=== PATIENT | male | born 1975 | race Caucasian/White ===

== ENCOUNTER 2020-04-01 02:27 | Outpatient (CLI) | payer BC, SELFPAY ==
[2020-04-01 22:41] LABS: SARS-CoV-2 RNA PCR Negative
== END 2020-04-01 02:28 | disposition home or self-care (01) ==
LOC: ANHCOVIDDT 02:27
PROVIDERS: Visit Provider Surgery
DX: Z01.818 Encounter for other preprocedural examination (principal); Z20.828 Contact with and (suspected) exposure to other viral communicable diseases
CPT/HCPCS: 87635; C9803; U0003

== ENCOUNTER 2020-04-03 00:18 | Day surgery (SDC) | payer BC, SELFPAY ==
[2020-03-28 13:20] VITALS: BMI 41.0
--- NOTE | 2020-04-02 12:16 | WPDANESEPPF ---
Anes - Initial Pre Proc Eval Procedure: Operation Date: 04/03/20 08:00 Proposed Procedures p Screening Colonoscopy - Miguel Willett DO Date/Time: 04/02/20 12:16 Surgeon: Miguel Willett DO Pre Op Diagnosis: Hx Colon Polyps Patient Data Age: 44 Gender: M Height: 1.85 m Weight: 141 kg Allergies Allergy/AdvReac Type Severity Reaction Status Date / Time No Known Allergies Allergy Unverified 04/03/20 06:55 Home Medications Medication Instructions Recorded Confirmed Type No Home Medications 03/28/20 04/03/20 History Patient hx anesthesia problems: none Family hx anesthesia problems: none PMFSH Family History Family History Father Family history of diabetes mellitus in first degree relative Other Asthma Diabetes mellitus Hypertension Social History Social History Smoking status: Never smoker Smokeless tobacco user: chewing tobacco Alcohol intake: current Substance use: never Substance use type: does not use Gender identity (if verbalized by the patient): Male Spiritual care concerns: No Anes - Eval Final PreProcedure Day of Procedure 04/02/20 12:16 Patient weight: morbidly obese Heart: regular rate and rhythm Lungs: clear to auscultation and normal air movement Airway: Mallampati scale class II Neurological: alert and oriented Last oral intake: >/= 8 hours ASA classification: III Emergent: no Anesthetic plan: proceed Anesthesia type and monitoring: general GIVS and standard monitoring Informed Consent: The patient's anesthetic plan and its attendant risks and benefits were discussed with the patient/family/POA. Questions were solicited and answers provided to the satisfaction of the patient/family/POA.
[2020-04-03 06:56] VITALS: BP 164/98; PULSE 80; RESP 20; TEMP 36.2; O2SAT 97
[2020-04-03] MEDS: LACTATED RINGERS 1,000 ML 150 ML IV CONT (07:04)
--- NOTE | 2020-04-03 07:33 | PM.IMHP ---
H&P: HPI History of Present Illness Date/Time: 04/03/20 07:33 Chief Complaint: hx colon polyps Narrative: Tito Gonzalez Jr. is a 44 year old male who presents for colonoscopy. He last had a colonoscopy 1 year ago and a large polyp was removed and tattooed at that time. He denies any changes since last seen. He has hx of diverticulitis but hasn't had any issues lately. Review of Systems Review of Systems: All systems reviewed & are unremarkable except as noted in HPI and below Constitutional: Constitutional: Denies chills, Denies fever(s), Denies headache(s) and Denies weight loss Eyes: Eyes: Denies change in vision ENT: Denies dizziness, Denies headache(s), Denies neck mass and Denies throat swelling Cardiovascular: Cardiovascular: Denies chest pain, Denies lightheadedness and Denies dyspnea Respiratory: Respiratory: Denies cough, Denies dyspnea and Denies wheezing Gastrointestinal: Gastrointestinal: Denies abdominal pain, Denies change in bowel habits, Denies nausea and Denies vomiting Genitourinary: Genitourinary: Denies hematuria and Denies dysuria Musculoskeletal: Musculoskeletal: Reports as per HPI Integumentary/Breasts: Skin/Breast: Reports as per HPI Neurologic: Denies dizziness and Denies headache(s) Allergic/Immunologic: Allergic/Immunologic: Denies throat swelling and Denies wheezing PMF Family History Family History Father Family history of diabetes mellitus in first degree relative Other Asthma Diabetes mellitus Hypertension Social History Social History Smoking status: Never smoker Smokeless tobacco user: chewing tobacco Alcohol intake: current Substance use: never Substance use type: does not use Gender identity (if verbalized by the patient): Male Spiritual care concerns: No Meds Home Medications and Allergies Home Medications Medication Instructions Recorded Confirmed Type No Home Medications 03/28/20 04/03/20 History Allergies Allergy/AdvReac Type Severity Reaction Status Date / Time No Known Allergies Allergy Unverified 04/03/20 06:55 Vital Signs Vital Signs - 24 hr 04/03/20 06:56 Temperature 36.2 C L Pulse Rate 80 Respiratory Rate 20 Blood Pressure 164/98 H Pulse Oximetry 97 Exam Const: General: no acute distress and alert Orientation/consciousness: patient oriented x3 HENMT: Head: normocephalic and atraumatic Ears: hearing grossly normal bilaterally General nose exam: Normal nares present Mouth: Yes Normal oral and palatal mucosa present Eyes: Periorbital: periorbital findings normal Sclera: sclerae normal EOM: EOMs intact bilaterally Neck: Neck: normal visual inspection, no lymphadenopathy and trachea midline Chest: Chest palpation & inspection: normal inspection of the chest Resp: Effort & Inspection: normal respiratory effort Auscultation: clear to auscultation bilaterally Cardio: Jugular venous distension: no JVD Rate: regular rate Rhythm: regular rhythm Heart sounds: S1 normal heart sound present and S2 normal heart sound present Peripheral pulses: Peripheral pulses 2+ throughout GI: Inspection: normal to inspection GI Palp: Yes Soft to palpation, No Tenderness to palpation present (GI), No Guarding due to palpation present (GI) and No Rebound tenderness present Percussion: Yes normal to percussion Auscultation: normal bowel sounds : General: Yes no CVA tenderness Back/Spine/Pelvis: Back: no CVA tenderness Neuro: General: patient oriented x3, no focal motor deficits and CN's II-XI intact bilaterally Cognition (Neuro): normal cognition Speech: normal speech Motor exam (neuro): 5/5 motor strength present throughout Extrem: General: capillary refill normal and no clubbing, cyanosis or edema Assessment and Plan Assessment and plan (1) Hx of colonic polyp: Code(s): Z86.010 - Per
[2020-04-03 08:37] VITALS: BP 137/70; PULSE 74; RESP 18; O2SAT 98
[2020-04-03 08:47] VITALS: BP 129/64; PULSE 72; RESP 22; O2SAT 96
[2020-04-03 08:57] VITALS: BP 123/78; PULSE 67; RESP 24; O2SAT 97
[2020-04-03 09:07] VITALS: BP 132/81; PULSE 66; RESP 22; O2SAT 100
== END 2020-04-03 09:45 | disposition home or self-care (01) ==
PROVIDERS: Visit Provider Surgery
PROC: 0DJD8ZZ Inspection of Lower Intestinal Tract, Via Natural or Artificial Opening Endoscopic (ICD-10-PCS; CPT 45378; principal; 2020-04-03 08:00)
DX: Z12.11 Encounter for screening for malignant neoplasm of colon (principal); Z86.010 Personal history of colon polyps; K57.30 Diverticulosis of large intestine without perforation or abscess without bleeding; E66.01 Morbid (severe) obesity due to excess calories; Z68.41 Body mass index [BMI] 40.0-44.9, adult; Z72.0 Tobacco use
CPT/HCPCS: 45378; J2704; J7120

== ENCOUNTER 2020-06-20 15:42 | Outpatient (CLI) | payer BC, SELFPAY | END 2020-06-20 15:43 | disposition home or self-care (01) | LOC: ANHCOVIDVC 15:42 | PROVIDERS: PCP Family Medicine | DX: Z23 Encounter for immunization (principal) | CPT/HCPCS: 0001A; 91300 ==

== ENCOUNTER → 2020-06-24 15:54 | Outpatient (CLI) | payer BC, SELFPAY ==
--- NOTE | ~2020-06-24 | XR_ITS ---
XR finger 4th RT min 2V 06/24/2020 16:19 INDICATION: Right fourth finger pain. PROCEDURE: 4 views right fourth finger COMPARISON: No prior studies for comparison. FINDINGS: Fracture, dislocation or subluxation is not identified. The soft tissues appear within norm al limits. No foreign bodies are identified. IMPRESSION: 1: NO ACUTE BONE OR JOINT ABNORMALITY IDENTIFIED. Reviewed, dictated and finalized at location A. CTION SPECIALIST
== END ==
PROVIDERS: PCP Family Medicine; Visit Provider Family Medicine
DX: M79.644 Pain in right finger(s) (principal)
CPT/HCPCS: 73140

== ENCOUNTER 2020-07-05 10:40 | Outpatient (CLI) | payer BC, SELFPAY ==
[2020-07-05 11:39] LABS: Hemoglobin A1C 5.1 % (<5.7)
[2020-07-05 12:27] LABS: Alanine Aminotransferase 25 U/L (4-50); Albumin Level 4.2 g/dL (3.5-5.1); Alkaline Phosphatase 50 U/L (38-126); Anion Gap 5 mmol/L (8-16); Aspartate Amino Transferase 30 U/L (17-59); Bilirubin,Total 0.5 mg/dL (0.2-1.3); Blood Urea Nitrogen 14 mg/dL (9-20); Calcium 9.1 mg/dL (8.4-10.2); Carbon Dioxide 29 mmol/L (22-30); Chloride 105 mmol/L (98-107); Cholesterol 240 mg/dL (0-200); Estimated Glomerular Filt Rate > 60; Glucose 99 mg/dL (75-110); HDL Direct 31 mg/dL; Potassium 4.8 mmol/L (3.4-5.0); Sodium 139 mmol/L (137-145); Triglycerides 111 mg/dL (<150)
[2020-07-05 12:38] LABS: LDL Cholesterol Direct 147 mg/dL
== END 2020-07-05 10:41 | disposition home or self-care (01) ==
LOC: ANHLAB 10:42
PROVIDERS: PCP Family Medicine; Visit Provider Family Medicine
DX: E78.5 Hyperlipidemia, unspecified (principal)
CPT/HCPCS: 36415; 80053; 80061; 83036

== ENCOUNTER 2020-07-11 15:41 | Outpatient (CLI) | payer BC, SELFPAY | END 2020-07-11 15:42 | disposition home or self-care (01) | LOC: ANHCOVIDVC 15:41 | PROVIDERS: PCP Family Medicine | DX: Z23 Encounter for immunization (principal) | CPT/HCPCS: 0002A; 91300 ==

== ENCOUNTER 2020-08-06 09:19 | Outpatient (CLI) | payer BC, SELFPAY ==
--- NOTE | 2020-08-15 12:28 | WPDHOMESLEEP ---
Sleep Study - Home Unattended Date of Study: 08/06/20 Ordering Provider: Joseph Gordon MD Interpreting Provider: Sandra Metcalf MD Home Sleep Study Type: Watch PAT Height: 1.88 m Weight: 136.078 kg Body Mass Index: 38.5 Neck Circumference (inches): 18.75 [place]: 6 Reason for Sleep Study Frequent snoring, interrupted sleep Sleep History Tito Gonzalez Jr is a 45-year-old man who has complaints of frequent loud snoring and interrupted sleeps. He wakes up gasping for air at night. He changes positions often during the night. He has been having these problems for at least 5 years. He occasionally awakens from sleep feeling short of breath and occasionally awakens at night with heartburn, belching or coughing. There is a family history with his mother who snores. 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 He has excessive daytime sleepiness. Occasionally has flat snoring is loud enough that others complain about it. He occasionally has trouble sleep with a cold. He occasionally gasp for breath at night and occasionally has breathing problems at night reported to him by others. He does not sweat excessively at night or notices heart pounding or beating irregularly night. He does not fall asleep during the day, involuntarily or while driving. He does not have loss of muscle tone was strong emotion. He does not have daytime difficulties due to excessive sleepiness. He does not feel paralyzed on waking or falling asleep and does not have vivid dreamlike scenes upon awakening or falling asleep. He does not feel afraid to go to sleep. He occasionally has nightmares and occasionally remembers his dreams. He rarely has racing thoughts. He does not feel sad or depressed. He occasionally has anxiety. He constantly has muscular tension. He occasionally notices parts of his body jerking. He rarely kicks at night. He does not have crawling or aching feelings in his legs and does not have any kind of leg pain at night. He does not have morning jaw pain. He does not grind his teeth during sleep. He frequently has bothered by pain during the day. He rarely is awakened by pain at night. He frequently wakes up feeling stiff in the morning with sore or achy muscles and pain in the neck and spine. He has memory problems, headaches. He reports a 20 lb weight gain in edin last year. He goes to bed at 11:00 p.m. taking 15-30 minutes fall asleep typically waking 3-4 times at night for few minutes. He repositioned and returns to sleep. He does not mention if he has nocturia. he wakes in the morning at 5:40 a.m.. On weekends, he goes to bed at 11:00 p.m. and awakes at 8:30 a.m.. He estimates 6 hours of sleep at night. He does not take naps in the afternoon or evening. A short nap is not refreshing. He is drowsy in the morning for an hour. He feels better in the afternoon. Habits: Never smoked tobacco. Caffeine 5 servings a day. No alcohol or recreational drugs. [facility] Past Medical History Medical History (Updated 08/15/20 @ 13:03 by Sandra Metcalf MD) Mixed hyperlipidemia Obesity Seasonal allergies Surgical History Surgical History (Updated 08/15/20 @ 13:03 by Sandra Metcalf MD) Status post cholecystectomy Family History Family History Father Family history of diabetes mellitus in first degree relative Other Asthma Diabetes mellitus Hypertension Social History Social History Smokeless tobacco user: chewing tobacco Alcohol intake: current Substance use: never Substance use type: does not use Gender identity (if verbalized by the patient): Male Spiritual care concerns: No Medications Home Medications Medication Instructions Recorded Confirmed Type fluticasone propionate 50 2 spray INTRANASAL DAILY #16 g 07/14/20 07/14/20 Rx mcg/actuation nasal
[2020-08-15 12:55] VITALS: BMI 38.5
== END 2020-08-06 09:20 | disposition home or self-care (01) ==
LOC: ANHCSM 09:20
PROVIDERS: PCP Family Medicine; Visit Provider Family Medicine
DX: G47.33 Obstructive sleep apnea (adult) (pediatric) (principal)
CPT/HCPCS: 95800

== ENCOUNTER → 2020-09-30 15:47 | Outpatient (CLI) | payer BC, SELFPAY ==
--- NOTE | ~2020-09-30 | XR_ITS ---
XR heel LT min 2V DATE: 09/30/2020 16:20 INDICATION: Heel spur TECHNIQUE: 2 views COMPARISON: None FINDINGS: Mild plantar calcaneal enthesopathy without erosive change or periostitis. There is calcification at the distal Achilles tendon near the insertion at the posterior calcaneus. No fracture, dislocation or obstruction. IMPRESSION: Plantar calcaneal enthesopathy and distal Achilles tendon calcification Reviewed, dictated and finalized at location A. IMPRESSION: Plantar calcaneal enthesopathy and distal Achilles tendon calcifica tion
== END ==
PROVIDERS: Visit Provider Chiropractor
DX: M77.32 Calcaneal spur, left foot (principal)
CPT/HCPCS: 73650

== ENCOUNTER 2020-11-20 15:30 | Outpatient (RCR) | payer BC, SELFPAY ==
--- NOTE | 2020-10-13 17:37 | PTOPEVAL ---
PHYSICAL THERAPY EVALUATION AND PLAN OF CARE Thank you for referring Tito Goldstein Carlos Romero to [facility].? The patient is scheduled to be seen for therapy? 2x/week for 4 weeks. Please review, sign, date and return this plan of care BRIANNA. I agree with and certify that the following plan of care is medically necessary. Referring Physician Date Attending Provider: Craig Galaviz JR, MD Evaluation Gastrointestinal History Hx Gall Bladder Disease Yes: 2002 Hx Polyps Yes: 03/2019 Genitourinary History Diagnosis left plantar fasciitis Onset 1 year Subjective Information experiencing bottom of foot Query Text:As Reported By Patient/ pain for the last year, with Family increased symptoms more in the last several months. Reports increased pain in left foot after sitting for 20minutes or greater and when he stands up for the first time in the morning. Self Report Pain Assessment Left Foot/Feet Reported Pain Level 4 Pain Description Sharp Pain Frequency Chronic,Intermittent Lowest Pain Intensity 0 Greatest Pain Intensity 8 Pain Aggravating Factors Walking,Weight Bearing/ Standing Pain Score Pain Score 4: Self Report Interventions Used Interventions Used By Clinicians Exercise,Joint Mobilization, Manual Therapy Techniques Lower Extremity Range of Motion General Lower Extremity Range of Motion Reason Not Measured WFL/Left,WFL/Right Ankle/Foot Range of Motion Left Ankle Dorsiflexion With Knee Extension 11 Range of Motion - Active Ankle Plantarflexion Range of Motion - 70 Active Query Text: Ankle Eversion Range of Motion - Active 21 Ankle Inversion Range of Motion - Active 40 Lower Extremity Muscle Strength Testing Hip Strength Left Hip Flexion Strength 5 Normal Hip Extension Strength 4 Good Hip Abduction Strength 3+ Fair + Hip Medial Rotation Strength 4 Good Hip Lateral Rotation Strength 4 Good Knee Strength Left Knee Flexion Strength 5 Normal Knee Extension Strength 5 Normal Ankle Strength Left Ankle Dorsiflexion Strength 5 Normal Ankle Eversion Strength 5 Normal Ankle Inversion Strength 5 Normal Toe Strength Comments great toe not able to differentiate from other toes for flexion, extension, and abduction Muscle Length Testing Muscle Length Testing Left Hamstring Length
--- NOTE | 2020-11-20 16:10 | PTOPEVAL ---
PHYSICAL THERAPY DISCHARGE NOTE Thank you for referring Tito Scottncer to [facility].? Please review, sign, date and return this plan of care BRIANNA. I agree with and certify that the following plan of care is medically necessary. Referring Physician Date Attending Provider: Craig Galaviz JR, MD Discharge Diagnosis left plantar fasciitis Onset 1 year Subjective Information reports that there is Query Text:As Reported By Patient/ significant improvement. Family Continues to be some morning pain but not near as bad as it was. Pain Score Pain Score 0: Self Report Interventions Used Interventions Used By Clinicians Exercise,Joint Mobilization, Manual Therapy Techniques, Ultrasound Lower Extremity Range of Motion Ankle/Foot Range of Motion Left Ankle Dorsiflexion With Knee Extension 15 Range of Motion - Active Ankle Plantarflexion Range of Motion - 70 Active Query Text: Ankle Eversion Range of Motion - Active 21 Ankle Inversion Range of Motion - Active 40 Lower Extremity Muscle Strength Testing Hip Strength Left Hip Flexion Strength 5 Normal Hip Extension Strength 4 Good Hip Abduction Strength 4 Good Hip Medial Rotation Strength 5 Normal Hip Lateral Rotation Strength 5 Normal Knee Strength Left Knee Flexion Strength 5 Normal Knee Extension Strength 5 Normal Ankle Strength Left Ankle Dorsiflexion Strength 5 Normal Ankle Plantarflexion Strength 5 Normal Ankle Eversion Strength 5 Normal Ankle Inversion Strength 5 Normal Toe Strength Comments is now able to perform great toe extension Muscle Length Testing Muscle Length Testing Left Hamstring Length -30 Query Text:(90 - 90 Position) Right Hamstring Length -30 Query Text:(90 - 90 Position) Gastrocnemius Length (R) Moderate Tightness,(L) Moderate Tightness PT Clinical Summary Tito is a 45 yo male at outpatient physical therapy with chronic left plantar fasciitis and achilles calcific tendinitis with a heel spur. Tito reports today that he has no pain and even walking/hiking all day on vacation there was minimal pain that only lasted a short time. He is comfindent and
== END 2020-11-26 15:37 | disposition home or self-care (01) ==
LOC: ANHPT 15:30
PROVIDERS: Visit Provider Podiatrist Foot & Ankle Surgery
DX: M72.2 Plantar fascial fibromatosis (principal); M65.272 Calcific tendinitis, left ankle and foot
CPT/HCPCS: 97035; 97110; 97140

== ENCOUNTER 2021-04-16 08:20 | Outpatient (CLI) | payer BC, SELFPAY ==
[2021-04-16 10:50] LABS: SARS-CoV-2 RNA PCR Positive (Negative)
== END 2021-04-16 08:21 | disposition home or self-care (01) ==
PROVIDERS: PCP Family Medicine; Visit Provider Family Medicine
DX: U07.1 COVID-19 (principal)
CPT/HCPCS: C9803; U0003; U0005

== ENCOUNTER 2021-04-19 08:07 | Outpatient (RCR) | payer BC, SELFPAY ==
[2021-04-19] MEDS: ACETAMINOPHEN 325 MG TABLET 650 MG PO (08:28)
[2021-04-19] MEDS: FAMOTIDINE 20 MG TABLET PO (08:28)
[2021-04-19] MEDS: diphenhydrAMINE HCl CAP 25 MG CAPSULE PO (08:28)
[2021-04-19 08:32] VITALS: BP 144/84; PULSE 69; TEMP 35.5; O2SAT 98
[2021-04-19 10:05] VITALS: BP 117/85; RESP 61; O2SAT 100
== END 2021-04-19 16:00 ==
LOC: AMCINF 08:07
PROVIDERS: PCP Family Medicine; Visit Provider Family Medicine
DX: U07.1 COVID-19 (principal); G47.33 Obstructive sleep apnea (adult) (pediatric)
CPT/HCPCS: A9270; M0247

== ENCOUNTER 2021-07-18 08:37 | Outpatient (CLI) | payer BC, SELFPAY ==
[2021-07-18 09:15] LABS: Alanine Aminotransferase 27 U/L (4-50); Albumin Level 4.4 g/dL (3.5-5.1); Alkaline Phosphatase 55 U/L (38-126); Anion Gap 5 mmol/L (8-16); Aspartate Amino Transferase 32 U/L (17-59); Bilirubin,Total 0.5 mg/dL (0.2-1.3); Blood Urea Nitrogen 14 mg/dL (9-20); Calcium 8.9 mg/dL (8.4-10.2); Carbon Dioxide 29 mmol/L (22-30); Chloride 105 mmol/L (98-107); Cholesterol 243 mg/dL (0-200); Estimated Glomerular Filt Rate > 60; Glucose 104 mg/dL (65-110); HDL Direct 30 mg/dL; Potassium 4.5 mmol/L (3.4-5.0); Sodium 139 mmol/L (137-145); Triglycerides 98 mg/dL (<150)
[2021-07-18 09:26] LABS: LDL Cholesterol Direct 144 mg/dL
== END 2021-07-18 08:38 | disposition home or self-care (01) ==
LOC: ANHLAB 08:38
PROVIDERS: PCP Family Medicine; Visit Provider Family Medicine
DX: E78.2 Mixed hyperlipidemia (principal)
CPT/HCPCS: 36415; 80053; 80061

== ENCOUNTER 2021-11-20 08:38 | Outpatient (CLI) | payer BC, SELFPAY ==
--- NOTE | 2021-11-20 08:48 | EST_ITS ---
Patient Info Name: Tito Gonzalez Age: 46 years : 1975 Gender: Male Ht: 74 in Wt: 320 lbs BSA: 2.81 m2 Exam Date: 11/20/2021 9:14 AM Exam Location: [facility] Patient Status: Outpatient Admit Date: 11/20/2021 Staff Ordering Physician: Joseph Gordon MD Nuclear Scientist: Mercy Fischer RDCS Attending Provider: Joseph Gordon MD Referring Physician: Heidi LAWLER; Exercise Technologist: Rabia Hector CT Nurse: CALLIE ALONSO NP Exam Type: CA stress echo Study Info Indications R07.9 - Chest pain, unspecified Treadmill exercise stress echocardiogram is performed. Summary 1. Normal sinus rhythm - normal ECG. 2. No abnormal ST/T wave changes with exercise. 3. Occasional PVCs. 4. Normal left ventricular size and contractility at rest. 5. Normal hyperdynamic response to exercise with no ischemic wall motion abnormality identified. 6. Clinically and electrocardiographically negative stress test at 87% of age predicted maximum heart rate. Protocol: Osman Stress ECG Details Stage: REST Duration (min): 0 min : 59 sec Speed (mph): 0.0 Grade (%): 0 HR (bpm): 69 SBP (mmHg): 121 DBP (mmHg): 80 METS: --- Stage: REST Duration (min): 22 min : 51 sec Speed (mph): 0.0 Grade (%): 0 HR (bpm): 73 SBP (mmHg): 121 DBP (mmHg): 80 METS: --- Stage: STAGE 1 Duration (min): 1 min : 0 sec Speed (mph): 1.7 Grade (%): 10 HR (bpm): 103 SBP (mmHg): 121 DBP (mmHg): 80 METS: --- Stage: STAGE 1 Duration (min): 2 min : 0 sec Speed (mph): 1.7 Grade (%): 10 HR (bpm): 109 SBP (mmHg): 121 DBP (mmHg): 80 METS: --- Stage: STAGE 1 Duration (min): 3 min : 0 sec Speed (mph): 1.7 Grade (%): 10 HR (bpm): 114 SBP (mmHg): 168 DBP (mmHg): 63 METS: --- Stage: STAGE 2 Duration (min): 1 min : 0 sec Speed (mph): 2.5 Grade (%): 12 HR (bpm): 122 SBP (mmHg): 168 DBP (mmHg): 63 METS: --- Stage: STAGE 2 Duration (min): 2 min : 0 sec Speed (mph): 2.5 Grade (%): 12 HR (bpm): 132 SBP (mmHg): 190 DBP (mmHg): 70 METS: --- Stage: STAGE 2 Duration (min): 3 min : 0 sec Speed (mph): 2.5 Grade (%): 12 HR (bpm): 140 SBP (mmHg): 190 DBP (mmHg): 70 METS: --- Stage: STAGE 3 Duration (min): 0 min : 58 sec Speed (mph): 0.0 Grade (%): 0 HR (bpm): 153 SBP (mmHg): 189 DBP (mmHg): 70 METS: --- Stage: RECOVERY Duration (min): 0 min : 1 sec Speed (mph): 0.0 Grade (%): 0 HR (bpm): 153 SBP (mmHg): 189 DBP (mmHg): 70 METS: --- Stage: RECOVERY Duration (min): 1 min : 1 sec Speed (mph): 0.0 Grade (%): 0 HR (bpm): 119 SBP (mmHg): 189 DBP (mmHg): 70 METS: --- Stage: RECOVERY Duration (min): 2 min : 1 sec Speed (mph): 0.0 Grade (%): 0 HR (bpm): 109 SBP (mmHg): 189 DBP (mmHg): 70
== END 2021-11-20 08:39 | disposition home or self-care (01) ==
LOC: ANHCARD 08:40
PROVIDERS: PCP Family Medicine; Visit Provider Family Medicine
DX: G47.33 Obstructive sleep apnea (adult) (pediatric) (principal); R06.00 Dyspnea, unspecified; R06.09 Other forms of dyspnea; U07.1 COVID-19
CPT/HCPCS: 93351

== ENCOUNTER 2021-11-27 13:30 | Outpatient (CLI) | payer BC, SELFPAY ==
--- NOTE | ~2021-11-27 | XR_ITS ---
EXAMINATION: XR chest 2V 11/27/2021 13:42 INDICATION: Shortness of breath. Covid. PROCEDURE: 2 view chest COMPARISON: No prior studies for comparison. FINDINGS: The lungs are clear. The cardiomediastinal silhouette is within normal limits. There are no pleural effusions. There is no pneumothorax suspected. IMPRESSION: 1: NO ACUTE CARDIOPULMONARY DISEASE. Reviewed, dictated and finalized at location A.
== END 2021-11-27 13:31 | disposition home or self-care (01) ==
LOC: ANHASCIMG 13:31
PROVIDERS: PCP Family Medicine; Visit Provider Family Medicine
DX: R06.00 Dyspnea, unspecified (principal); U07.1 COVID-19
CPT/HCPCS: 71046

== ENCOUNTER 2021-11-27 14:38 | Outpatient (CLI) | payer BC, SELFPAY ==
--- NOTE | 2021-11-30 13:19 | WPDPFTINT ---
PFT Procedure Performed PFT Procedure Performed Plethysmography (Lung Vol) Diffusing Cap (DLCO) Flow Vol Loop Spirometry w/o Bronchodil PFT Interpretation Lung volumes were measured with the body plethysmography method. The diminished expiratory reserve volume is related to obesity. The remaining lung volumes are unremarkable. Spirometry showed normal expiratory flow rates and a normal FEV1 to FVC ratio of 83%. No post bronchodilator study was carried out. Lung diffusion capacity is within the normal range at 99% predicted. The flow volume loop is unremarkable. Impression: Spirometry, lung volumes, and lung diffusion capacity all within the normal range.
== END 2021-11-27 14:39 | disposition home or self-care (01) ==
LOC: ANHPFT 14:41
PROVIDERS: PCP Family Medicine; Visit Provider Family Medicine
DX: R06.00 Dyspnea, unspecified (principal); U07.1 COVID-19
CPT/HCPCS: 94375; 94726; 94729

== ENCOUNTER → 2022-04-06 15:42 | Outpatient (CLI) | payer BC, SELFPAY ==
--- NOTE | ~2022-04-06 | CT_ITS ---
EXAMINATION: CT sinus wo con DATE: 04/06/2022 15:55 INDICATION: Chronic sinusitis. Headaches. TECHNIQUE: Computed tomography (CT) of the paranasal sinuses was performed without contrast. Iterativ e reconstruction technique was employed. Exam dose: 290.62 mGy-cm total exam DLP. COMPARISON: None FINDINGS: There is mild rightward deviation of nasal septum. There is asymmetric mildly prominent sof t tissue swelling of the left middle and inferior nasal turbinates. There is intralamellar cell of th e left middle nasal turbinate. The ostiomeatal units are patent. There is slight mucoperiosteal thickening of the anteromedial aspect of the right frontal sinus. The left frontal sinus is clear. There is minimal soft tissue thickening of the anterior aspect of the et hmoid air cells bilaterally. There is mild mucoperiosteal thickening in the lower right maxillary sinus. 1.45 by 1.7 cm polyp or m ucous retention cyst along the posterolateral aspect of the right maxillary sinus. The left maxillary sinus is clear. The sphenoid sinuses are normally developed and aerated. The mastoid air cells are normally developed and aerated. Middle and inner ear apparatus appear normal bilaterally. IMPRESSION: Intralamellar cell of left middle nasal turbinate Asymmetric soft tissue swelling of left nasal turbinates 1.45 x 1.7 cm polyp or mucous retention cyst of right maxillary sinus, mild mucoperiosteal thickening of the lower right maxillary sinus Minimal focal soft tissues thickening of the anteromedial right frontal sinus and anterior bilateral ethmoid Reviewed, dictated and finalized at Location A. Reviewed, dictated and finalized at location A. E INSPECTOR IMPRESSION: Intralamellar cell of left middle nasal turbinate Asymmetric soft tissue swelling of left nasal turbinates 1.45 x 1.7 cm polyp or mucous retention cyst of right maxillary sinus, mild muc operiosteal thickening of the lower right maxillary sinus Minimal focal soft tissues thickening of the anteromedial right frontal sinus a nd anterior bilateral ethmoid
== END ==
PROVIDERS: PCP Family Medicine; Visit Provider Family Medicine
DX: J32.9 Chronic sinusitis, unspecified (principal)
CPT/HCPCS: 70486

== ENCOUNTER 2022-08-21 07:38 | Outpatient (CLI) | payer BC, SELFPAY ==
[2022-08-21 07:50] LABS: Basophils Absolute Auto 0.04 K/mm3 (0.00-0.10); Basophils Percent Auto 0.6 % (0.0-1.0); Eosinophils Absolute Auto 0.18 K/mm3 (0.02-0.50); Eosinophils Percent Auto 2.9 % (1.0-6.0); Hematocrit 40.9 % (40.0-54.0); Hemoglobin 14.1 g/dL (14.0-18.0); Immature Granulocyte Absolute 0.02 K/mm3 (0.00-0.00); Immature Granulocyte Percent A 0.3 % (0.0-0.0); Lymphocytes Absolute Auto 2.01 K/mm3 (1.10-4.50); Lymphocytes Percent Auto 32.2 % (18.0-42.0); Mean Corpuscular HGB Conc 34.5 g/dL (32.0-36.0); Mean Platelet Volume 9.1 fl (8.7-11.0); Monocytes Absolute Auto 0.44 K/mm3 (0.10-0.90); Neutrophils Absolute Auto 3.6 K/mm3 (1.7-7.2); Platelet Count Result 327 K/mm3 (150-420); Red Cell Distribution Width 13.4 % (11.6-14.4); White Blood Count 6.3 K/mm3 (4.8-10.8)
[2022-08-21 08:13] LABS: Hemoglobin A1C 5.2 % (<5.7)
[2022-08-21 08:16] LABS: Anion Gap 9 mmol/L (8-16); Blood Urea Nitrogen 15 mg/dL (7-18); Calcium 8.7 mg/dL (8.5-10.1); Carbon Dioxide 26 mmol/L (21-32); Chloride 105 mmol/L (98-108); Cholesterol 244 mg/dL (0-200); Estimated Glomerular Filt Rate > 60; Glucose 112 mg/dL (70-99); HDL Direct 37 mg/dL (40-60); LDL Cholesterol Calculated 179 mg/dL (<130); Osmolality Calculated 291 mOsm/kg (285-295); Potassium 4.5 mmol/L (3.5-5.1); Sodium 140 mmol/L (136-145); Triglycerides 140 mg/dL (0-150)
[2022-08-26 20:10] LABS: Vitamin D 25 Hydroxy 21 ng/mL (30-100)
== END 2022-08-21 07:39 | disposition home or self-care (01) ==
LOC: CHSLAB 07:40
PROVIDERS: PCP Family Medicine; Visit Provider Nurse Practitioner Family
DX: R03.0 Elevated blood-pressure reading, without diagnosis of hypertension (principal); E66.9 Obesity, unspecified; E78.2 Mixed hyperlipidemia
CPT/HCPCS: 36415; 80048; 80061; 82306; 83036; 85025

== ENCOUNTER 2023-07-16 10:17 | Outpatient (CLI) | payer BC, SELFPAY ==
[2023-07-16 11:16] LABS: Alanine Aminotransferase 42 U/L (16-63); Albumin Level 3.9 g/dL (3.4-5.0); Alkaline Phosphatase 57 U/L (46-116); Anion Gap 10 mmol/L (4-12); Aspartate Amino Transferase 23 U/L (15-37); Bilirubin,Total 0.6 mg/dL (0.00-1.00); Blood Urea Nitrogen 15 mg/dL (7-18); Calcium 8.9 mg/dL (8.5-10.1); Carbon Dioxide 26 mmol/L (21-32); Chloride 107 mmol/L (98-108); Cholesterol 227 mg/dL (0-200); Estimated Glomerular Filt Rate > 60; Glucose 107 mg/dL (70-99); HDL Direct 43 mg/dL (40-60); LDL Cholesterol Calculated 166 mg/dL (<130); Osmolality Calculated 296 mOsm/kg (285-295); Potassium 4.4 mmol/L (3.5-5.1); Sodium 143 mmol/L (136-145); Thyroid Stimulating Hormone 2.77 uIU/mL (0.36-3.74); Total Protein 6.8 g/dL (6.4-8.2); Triglycerides 88 mg/dL (0-150)
[2023-07-20 11:01] LABS: Testosterone Total 183 ng/dL (250-1100)
[2023-07-26 12:46] LABS: Vitamin D 25 Hydroxy 18 ng/mL (30-100)
== END 2023-07-16 10:18 | disposition home or self-care (01) ==
LOC: CHSLAB 10:19
PROVIDERS: PCP Family Medicine; Visit Provider Family Medicine
DX: E55.9 Vitamin D deficiency, unspecified (principal); E78.2 Mixed hyperlipidemia; R53.83 Other fatigue
CPT/HCPCS: 36415; 80053; 80061; 82306; 84403; 84443

== ENCOUNTER 2023-07-23 08:55 | Outpatient (CLI) | payer BC, SELFPAY ==
[2023-07-27 06:28] LABS: FSH 3.6 mIU/mL (1.4-12.8); LH 1.9 mIU/mL (1.5-9.3); Prolactin 8.7 ng/mL (***)
[2023-07-27 11:24] LABS: Testosterone Total 188 ng/dL (250-1100)
== END 2023-07-23 08:56 | disposition home or self-care (01) ==
LOC: CHSLAB 08:57
PROVIDERS: PCP Family Medicine; Visit Provider Family Medicine
DX: E29.1 Testicular hypofunction (principal); R53.83 Other fatigue
CPT/HCPCS: 36415; 83001; 83002; 84146; 84403

== ENCOUNTER 2023-12-17 07:06 | Outpatient (CLI) | payer OTHER, SELFPAY ==
[2023-12-17 07:25] LABS: Basophils Absolute Auto 0.04 K/mm3 (0.00-0.10); Basophils Percent Auto 0.6 % (0.0-1.0); Eosinophils Absolute Auto 0.15 K/mm3 (0.02-0.50); Eosinophils Percent Auto 2.3 % (1.0-6.0); Hematocrit 41.3 % (40.0-54.0); Hemoglobin 14.5 g/dL (14.0-18.0); Immature Granulocyte Absolute 0.03 K/mm3 (0.00-0.00); Immature Granulocyte Percent A 0.5 % (0.0-0.0); Lymphocytes Absolute Auto 2.17 K/mm3 (1.10-4.50); Lymphocytes Percent Auto 32.6 % (18.0-42.0); Mean Corpuscular HGB Conc 35.1 g/dL (32-36); Mean Corpuscular Hemoglobin 30.2 pg (27.0-31.0); Mean Platelet Volume 8.9 fl (8.7-11.0); Monocytes Absolute Auto 0.45 K/mm3 (0.10-0.90); Monocytes Percent Auto 6.8 % (2.0-11.0); Neutrophils Absolute Auto 3.81 K/mm3 (1.70-7.20); Neutrophils Percent Auto 57.2 % (50.0-70.0); Platelet Count Result 362 K/mm3 (150-420); Red Cell Distribution Width 13.1 % (11.6-14.4); White Blood Count 6.7 K/mm3 (4.8-10.8)
[2023-12-17 07:46] LABS: Hemoglobin A1C 5.5 % (<5.7)
[2023-12-17 08:27] LABS: Alanine Aminotransferase 36 U/L (16-63); Albumin Level 3.9 g/dL (3.4-5.0); Alkaline Phosphatase 67 U/L (46-116); Anion Gap 8 mmol/L (4-12); Aspartate Amino Transferase 21 U/L (15-37); Bilirubin,Total 0.4 mg/dL (0.00-1.00); Blood Urea Nitrogen 14 mg/dL (7-18); Calcium 8.6 mg/dL (8.5-10.1); Carbon Dioxide 26 mmol/L (21-32); Chloride 103 mmol/L (98-108); Estimated Glomerular Filt Rate > 60; Glucose 104 mg/dL (70-99); Osmolality Calculated 284 mOsm/kg (285-295); Potassium 4.3 mmol/L (3.5-5.1); Sodium 137 mmol/L (136-145); Total Protein 6.7 g/dL (6.4-8.2)
[2023-12-20 19:43] LABS: Testosterone Total 47 ng/dL (250-1100)
[2023-12-21 04:03] LABS: Vitamin D 25 Hydroxy 32 ng/mL (30-100)
== END 2023-12-17 07:07 | disposition home or self-care (01) ==
LOC: CHSLAB 07:07
PROVIDERS: PCP Family Medicine; Visit Provider Family Medicine
DX: R03.0 Elevated blood-pressure reading, without diagnosis of hypertension (principal); E55.9 Vitamin D deficiency, unspecified; E29.1 Testicular hypofunction
CPT/HCPCS: 36415; 80053; 82306; 83036; 84403; 85025

== ENCOUNTER 2024-03-16 09:31 | Outpatient (CLI) | payer OTHER, SELFPAY ==
[2024-03-16 19:13] LABS: Basophils Absolute Auto 0.1 K/mm3 (0.0-0.1); Basophils Percent Auto 0.6 % (0.2-1.2); Eosinophils Absolute Auto 0.2 K/mm3 (0-0.3); Eosinophils Percent Auto 2.5 % (0-4.4); Hematocrit 48.3 % (42.0-52.0); Hemoglobin 15.4 g/dL (14.0-18.0); Immature Granulocyte Absolute 0.01 K/mm3 (0.00-0.031); Immature Granulocyte Percent A 0.1 % (0-0.5); Lymphocytes Absolute Auto 2.48 K/mm3 (0.9-3.2); Lymphocytes Percent Auto 30.7 % (18.3-44.2); Mean Corpuscular HGB Conc 31.9 g/dl (32-36); Mean Corpuscular Hemoglobin 29.1 pg (26-34); Mean Corpuscular Volume 91.3 fl (80-100); Mean Platelet Volume 9.3 fl (7.4-10.4); Monocytes Absolute Auto 0.6 K/mm3 (0.1-0.6); Monocytes Percent Auto 7.7 % (2.6-8.5); Neutrophils Absolute Auto 4.7 K/mm3 (1.3-6.7); Neutrophils Percent Auto 58.4 % (45.5-73.1); Platelet Count Result 378 k/mm3 (150-375); Red Blood Count 5.29 M/mm3 (4.6-6.20); Red Cell Distribution Width 13.5 % (11.5-14.5); White Blood Count 8.1 K/mm3 (4.5-10.0)
[2024-03-16 19:28] LABS: Alanine Aminotransferase 31 U/L (6-50); Albumin Level 4.6 g/dL (3.5-5.1); Alkaline Phosphatase 54 U/L (38-126); Anion Gap 10 mmol/L (4-12); Aspartate Amino Transferase 69 U/L (17-59); Bilirubin,Total 0.6 mg/dL (0.2-1.3); Blood Urea Nitrogen 11 mg/dL (9-20); Calcium 8.9 mg/dL (8.4-10.2); Carbon Dioxide 26 mmol/L (22-30); Chloride 102 mmol/L (98-107); Estimated Glomerular Filt Rate > 60; Glucose 69 mg/dL (65-110); Potassium 4.4 mmol/L (3.4-5.0); Sodium 138 mmol/L (137-145)
[2024-03-20 09:04] LABS: Testosterone Total 405 ng/dL (250-1100)
== END 2024-03-16 09:32 | disposition home or self-care (01) ==
LOC: ANHGOSHLAB 09:31
PROVIDERS: PCP Family Medicine; Visit Provider Family Medicine
DX: E29.1 Testicular hypofunction (principal)
CPT/HCPCS: 36415; 80053; 84403; 85025

== ENCOUNTER 2025-01-19 12:27 | Outpatient (CLI) | payer OTHER, SELFPAY ==
[2025-01-19 12:41] LABS: Hematocrit 42.6 % (40.0-54.0); Hemoglobin 14.6 g/dL (14.0-18.0); Immature Granulocyte Percent A 0.4 % (0.0-0.0); Lymphocytes Absolute Auto 1.96 K/mm3 (1.10-4.50); Mean Corpuscular HGB Conc 34.3 g/dL (32-36); Mean Corpuscular Hemoglobin 30.0 pg (27.0-31.0); Mean Corpuscular Volume 87.7 fL (78.0-102.0); Nucleated Red Blood Cells Absolute Auto 0.00 K/mm3 (0.00-0.00); Nucleated Red Blood Cells Perc 0.0 % (0-0.0); Platelet Count Result 345 K/mm3 (150-420); Red Blood Count 4.86 M/mm3 (4.70-6.10); White Blood Count 7.1 K/mm3 (4.8-10.8)
[2025-01-19 13:11] LABS: Alanine Aminotransferase 26 U/L (6-50); Albumin Level 4.6 g/dL (3.5-5.1); Alkaline Phosphatase 55 U/L (38-126); Anion Gap 11 mmol/L (4-12); Aspartate Amino Transferase 26 U/L (17-59); Bilirubin,Total 0.9 mg/dL (0.2-1.3); Blood Urea Nitrogen 16 mg/dL (9-20); Calcium 9.5 mg/dL (8.4-10.2); Carbon Dioxide 24 mmol/L (22-30); Chloride 106 mmol/L (98-107); Estimated Glomerular Filt Rate > 60; Glucose 96 mg/dL (65-110); Osmolality Calculated 293 mOsm/kg (285-295); Potassium 4.6 mmol/L (3.4-5.0); Sodium 141 mmol/L (137-145); Total Protein 8.2 g/dL (6.3-8.2)
[2025-01-19 13:42] LABS: Thyroid Stimulating Hormone 2.710 uIU/mL (0.465-4.680)
[2025-01-22 22:07] LABS: Free Testosterone (Direct) 4.7 pg/mL (6.8-21.5)
== END 2025-01-19 12:28 | disposition home or self-care (01) ==
LOC: CHSLAB 12:28
PROVIDERS: PCP Family Medicine; Visit Provider Family Medicine
DX: R74.8 Abnormal levels of other serum enzymes (principal); E29.1 Testicular hypofunction
CPT/HCPCS: 36415; 80053; 84402; 84403; 84443; 85025